=== PATIENT | female | born 1970 | race Caucasian/White ===

== ENCOUNTER → 2016-09-30 | Outpatient (CLI) | payer BC | LOC: ULTRA 13:16 | DX: E04.2 Nontoxic multinodular goiter (principal) ==

== ENCOUNTER → 2018-10-26 | Outpatient (CLI) | payer BC, OTHER | LOC: ULTRA 07:41 | DX: E04.2 Nontoxic multinodular goiter (principal) ==

== ENCOUNTER → 2019-12-06 | Outpatient (CLI) | payer BC, OTHER | LOC: ULTRA 07:44 | PROVIDERS: ATTEND Otolaryngology Plastic Surgery within the Head & Neck | DX: E04.2 Nontoxic multinodular goiter (principal); E07.89 Other specified disorders of thyroid ==